=== PATIENT | male | born 1960 | race Caucasian/White ===

== ENCOUNTER 2016-05-30 18:39 | Emergency (ER) | payer OTHER ==
[~2016-05-30] VITALS: Ht 165.1 cm; Wt 72.2 kg
[~2016-05-30 18:39] MED LIST: PERCOCET 5/31 TABLET PO
[2016-05-30] MEDS ORDERED: MEDROL DOSEPAK4 MG PO (20:31)
[2016-05-30] MEDS ORDERED: DIFLUCAN150 MG PO (20:31)
[2016-05-30 20:40] VITALS: BP 118/74
== END 2016-05-30 20:44 | disposition home or self-care (01) ==
LOC: EME 18:39
DX: B35.3 Tinea pedis (principal); B35.4 Tinea corporis; M32.9 Systemic lupus erythematosus, unspecified; Z87.891 Personal history of nicotine dependence
CPT/HCPCS: 99281; 99283